=== PATIENT | female | born 1930 | race Caucasian/White ===

== ENCOUNTER → 2019-10-16 | Outpatient (CLI) | payer MEDICARE ==
[~2019-10-16] MED LIST: NORVASC10 MG PO; TIMOLOL 5 ML5 ML OP; TRIAMTERENE & H1 CA1 PO; VITAMINS & MINE1 TAB PO
[2019-10-16 10:02] LABS: CHLORIDE 101 mmol/L (98-107); POTASSIUM 3.7 mmol/L (3.5-5.1); SODIUM 135 mmol/L (136-145)
[2019-10-16 10:14] LABS: ALBUMIN 3.8 gm/dl (3.1-4.5); ALKALINE PHOSPHATASE 102 U/L (45-117); BUN 12 mg/dl (7-24); CREATININE 0.66 mg/dL (0.55-1.02); SGOT/AST 15 IU/L (3-35); SGPT/ALT 18 U/L (12-78); TOTAL PROTEIN 7.4 gm/dL (6.4-8.2)
== END | disposition home or self-care (01) ==
LOC: LAB 08:41
PROVIDERS: Family Medicine
DX: I10 Essential (primary) hypertension (principal)

== ENCOUNTER 2020-04-21 17:54 | Inpatient (IN) | payer MEDICARE ==
[~2020-04-21] VITALS: Ht 170.2 cm; Wt 79.0 kg
[2020-04-21 17:54] VITALS: BP 125/76
[2020-04-21 18:17] LABS: BASO % 0.2 % (0.0-1.0); EOS % 0.2 % (1.0-4.0); HEMATOCRIT 44.4 % (37.0-47.0); LYMPH # 3.2 10*3/uL (1.3-4.4); LYMPH % 36.3 % (27.0-41.0); MEAN CELL VOLUME 87.1 fl (81.0-99.0); MEAN CORPUSCULAR HGB 29.2 pg (27.0-31.0); MEAN CORPUSCULAR HGB CONC 33.6 g/dl (33.0-37.0); MEAN PLATELET VOLUME 8.3 fl (9.6-12.3); MONO # 0.9 10*3/uL (0.1-1.0); MONO % 10.1 % (3.0-9.0); NEUT # 4.7 10*3/uL (2.3-7.9); NEUT % 52.7 % (47.0-73.0); PLATELET COUNT AUTOMATED 286 10*3/uL (130-400); RED CELL DISTRI WIDTH 13.9 % (0-14.5); WHITE BLOOD COUNT 8.8 10*3/uL (4.8-10.8)
[2020-04-21 18:26] LABS: ACT PARTIAL THROMBO TIME 26.6 SECONDS (20.0-32.1)
[2020-04-21 18:33] LABS: ALBUMIN 3.2 gm/dl (3.1-4.5); BUN 13 mg/dl (7-24); CHLORIDE 94 mmol/L (98-107); CREATININE 0.74 mg/dL (0.55-1.02); POTASSIUM 2.9 mmol/L (3.5-5.1); SGOT/AST 14 IU/L (3-35); SGPT/ALT 19 U/L (12-78); SODIUM 126 mmol/L (136-145); TOTAL PROTEIN 6.4 gm/dL (6.4-8.2)
[2020-04-21 18:36] LABS: ALKALINE PHOSPHATASE 76 U/L (45-117)
[2020-04-21 18:39] LABS: TROPONIN I < 0.015 ng/ml (<0.045)
[2020-04-21 18:55] VITALS: BP 128/59
[2020-04-21 19:18] VITALS: BP 129/59
[2020-04-21 20:32] VITALS: BP 156/71
[2020-04-21] MEDS ORDERED: AMLODIPINE BESYL5 MG PO (22:57)
[2020-04-21] MEDS ORDERED: MIRTAZAPINE7.5 MG PO (22:58)
[2020-04-21] MEDS ORDERED: POTASSIUM CHLO10 ME4 PO (22:58)
[2020-04-21] MEDS ORDERED: TRIAMTERENE & H1 CAP PO (23:00)
[2020-04-22] VITALS: BP 144/71
[2020-04-22 00:14] LABS: BUN 18 mg/dl (7-24); CHLORIDE 98 mmol/L (98-107); POTASSIUM 3.5 mmol/L (3.5-5.1); SODIUM 129 mmol/L (136-145); TROPONIN I < 0.015 ng/ml (<0.045)
[2020-04-22] MEDS ORDERED: PRESERVISION A1 EAC1 PO (00:54)
[2020-04-22 05:30] LABS: ALBUMIN 2.8 gm/dl (3.1-4.5); ALKALINE PHOSPHATASE 72 U/L (45-117); BUN 14 mg/dl (7-24); CHLORIDE 102 mmol/L (98-107); CREATININE 0.52 mg/dL (0.55-1.02); POTASSIUM 3.1 mmol/L (3.5-5.1); SGOT/AST 8 IU/L (3-35); SGPT/ALT 16 U/L (12-78); SODIUM 135 mmol/L (136-145); TOTAL PROTEIN 5.6 gm/dL (6.4-8.2)
[2020-04-22 05:37] LABS: BASO % 0.1 % (0.0-1.0); EOS % 0.4 % (1.0-4.0); HEMATOCRIT 39.8 % (37.0-47.0); LYMPH # 2.7 10*3/uL (1.3-4.4); LYMPH % 36.8 % (27.0-41.0); MEAN CELL VOLUME 86.7 fl (81.0-99.0); MEAN CORPUSCULAR HGB 29.6 pg (27.0-31.0); MEAN CORPUSCULAR HGB CONC 34.2 g/dl (33.0-37.0); MEAN PLATELET VOLUME 8.6 fl (9.6-12.3); MONO # 0.8 10*3/uL (0.1-1.0); MONO % 10.5 % (3.0-9.0); NEUT # 3.8 10*3/uL (2.3-7.9); NEUT % 51.8 % (47.0-73.0); PLATELET COUNT AUTOMATED 253 10*3/uL (130-400); RED BLOOD COUNT 4.59 10*6/uL (4.10-5.10); RED CELL DISTRI WIDTH 14.1 % (0-14.5); THYROID STIM HORMONE (HS) 0.808 uIU/ml (0.358-4.75); WHITE BLOOD COUNT 7.3 10*3/uL (4.8-10.8)
[2020-04-22 08:00] VITALS: BP 156/70
[2020-04-22 12:00] VITALS: BP 157/73
[2020-04-22 16:00] VITALS: BP 131/57
[2020-04-22 20:00] VITALS: BP 132/63
[2020-04-23] VITALS: BP 151/64
[2020-04-23 07:05] LABS: BASO % 0.4 % (0.0-1.0); EOS # 0.1 10*3/uL (0.0-0.4); EOS % 0.7 % (1.0-4.0); HEMATOCRIT 40.8 % (37.0-47.0); LYMPH # 2.7 10*3/uL (1.3-4.4); LYMPH % 35.8 % (27.0-41.0); MEAN CELL VOLUME 87.9 fl (81.0-99.0); MEAN CORPUSCULAR HGB 29.7 pg (27.0-31.0); MEAN CORPUSCULAR HGB CONC 33.8 g/dl (33.0-37.0); MEAN PLATELET VOLUME 8.8 fl (9.6-12.3); MONO # 0.8 10*3/uL (0.1-1.0); MONO % 10.9 % (3.0-9.0); NEUT # 3.9 10*3/uL (2.3-7.9); NEUT % 51.9 % (47.0-73.0); PLATELET COUNT AUTOMATED 242 10*3/uL (130-400); RED BLOOD COUNT 4.64 10*6/uL (4.10-5.10); RED CELL DISTRI WIDTH 14.5 % (0-14.5); WHITE BLOOD COUNT 7.5 10*3/uL (4.8-10.8)
[2020-04-23 07:24] LABS: BUN 12 mg/dl (7-24); CHLORIDE 101 mmol/L (98-107); CREATININE 0.57 mg/dL (0.55-1.02); POTASSIUM 3.4 mmol/L (3.5-5.1); SODIUM 133 mmol/L (136-145)
[2020-04-23 08:00] VITALS: BP 130/78; BP 138/68
[2020-04-23 12:00] VITALS: BP 123/74
[2020-04-23 16:00] VITALS: BP 136/67
[2020-04-23 20:00] VITALS: BP 124/69
[2020-04-24] VITALS: BP 139/67
[2020-04-24 06:15] LABS: BUN 15 mg/dl (7-24); CHLORIDE 100 mmol/L (98-107); CREATININE 0.52 mg/dL (0.55-1.02); SODIUM 133 mmol/L (136-145)
[2020-04-24 08:00] VITALS: BP 151/82
[2020-04-24 12:00] VITALS: BP 125/66
== END 2020-04-24 13:51 | disposition other institution (70) | DRG 312 ==
LOC: ED 17:54 → EDHOLD 19:35 → 4E 19:35
PROVIDERS: Emergency Medicine; Internal Medicine; Registered Nurse; Student in an Organized Health Care Education/Training Program; ADMIT Family Medicine
DX: R55 Syncope and collapse (principal); E87.1 Hypo-osmolality and hyponatremia; E87.6 Hypokalemia; R73.9 Hyperglycemia, unspecified; E83.41 Hypermagnesemia; I10 Essential (primary) hypertension; Z03.818 Encounter for observation for suspected exposure to other biological agents ruled out; Z96.651 Presence of right artificial knee joint; Z96.641 Presence of right artificial hip joint; Z98.49 Cataract extraction status, unspecified eye; Z79.899 Other long term (current) drug therapy; Z85.3 Personal history of malignant neoplasm of breast

== ENCOUNTER 2020-05-21 10:03 | Inpatient (IN) | payer MEDICARE ==
[~2020-05-21] VITALS: Ht 170.2 cm; Wt 83.1 kg
[~2020-05-21 10:03] MED LIST changes: +AMLODIPINE BESYL5 MG PO; +MIRTAZAPINE7.5 MG PO; +POTASSIUM CHLO10 ME4 PO; +PRESERVISION A1 EAC1 PO; +TRIAMTERENE & H1 CAP PO
[2020-05-21 10:13] VITALS: BP 153/77
[2020-05-21 11:00] LABS: BASO % 0.3 % (0.0-1.0); EOS % 0.2 % (1.0-4.0); HEMATOCRIT 42.3 % (37.0-47.0); LYMPH % 32.1 % (27.0-41.0); MEAN CELL VOLUME 85.1 fl (81.0-99.0); MEAN CORPUSCULAR HGB 29.6 pg (27.0-31.0); MEAN CORPUSCULAR HGB CONC 34.8 g/dl (33.0-37.0); MEAN PLATELET VOLUME 8.2 fl (9.6-12.3); MONO # 0.7 10*3/uL (0.1-1.0); MONO % 11.3 % (3.0-9.0); NEUT # 3.4 10*3/uL (2.3-7.9); NEUT % 55.9 % (47.0-73.0); PLATELET COUNT AUTOMATED 297 10*3/uL (130-400); RED BLOOD COUNT 4.97 10*6/uL (4.10-5.10); RED CELL DISTRI WIDTH 14.1 % (0-14.5); WHITE BLOOD COUNT 6.1 10*3/uL (4.8-10.8)
[2020-05-21 11:03] LABS: BILIRUBIN NEGATIVE (NEGATIVE); BLOOD NEGATIVE (NEGATIVE); CLARITY CLEAR (CLEAR); COLOR YELLOW (YELLOW); GLUCOSE NEGATIVE (NEGATIVE); KETONE NEGATIVE (NEGATIVE); LEUKO ESTERASE NEGATIVE (NEGATIVE); NITRITE NEGATIVE (NEGATIVE); PH 8.5 (5.0-9.0); SPECIFIC GRAVITY 1.005 (1.005-1.030); UROBILINOGEN 0.2 E.U./dl (0.2-1.0)
[2020-05-21 11:07] LABS: BACTERIA TRACE; EPITHELIAL CELLS 0-2; WBC 0-2 wbc/hpf (0-5)
[2020-05-21 11:18] LABS: ALBUMIN 3.2 gm/dl (3.1-4.5); ALKALINE PHOSPHATASE 94 U/L (45-117); BUN 8 mg/dl (7-24); CHLORIDE 90 mmol/L (98-107); CREATININE 0.61 mg/dL (0.55-1.02); POTASSIUM 3.4 mmol/L (3.5-5.1); SGOT/AST 14 IU/L (3-35); SGPT/ALT 17 U/L (12-78); SODIUM 125 mmol/L (136-145); TOTAL PROTEIN 6.8 gm/dL (6.4-8.2)
[2020-05-21 11:50] VITALS: BP 156/80
[2020-05-21 14:23] VITALS: BP 160/82
[2020-05-21 17:05] LABS: BUN 7 mg/dl (7-24); CHLORIDE 93 mmol/L (98-107); CREATININE 0.61 mg/dL (0.55-1.02); POTASSIUM 3.7 mmol/L (3.5-5.1); SODIUM 128 mmol/L (136-145)
[2020-05-21 17:45] VITALS: BP 130/72
[2020-05-21] MEDS ORDERED: POTASSIUM CHLO20 ME3 PO (17:59)
[2020-05-21 20:00] VITALS: BP 125/74
[2020-05-22] VITALS: BP 140/84
[2020-05-22 06:08] LABS: BASO % 0.3 % (0.0-1.0); EOS % 0.5 % (1.0-4.0); LYMPH # 2.8 10*3/uL (1.3-4.4); LYMPH % 42.7 % (27.0-41.0); MEAN CELL VOLUME 85.1 fl (81.0-99.0); MEAN CORPUSCULAR HGB 28.6 pg (27.0-31.0); MEAN CORPUSCULAR HGB CONC 33.6 g/dl (33.0-37.0); MEAN PLATELET VOLUME 8.2 fl (9.6-12.3); MONO # 0.8 10*3/uL (0.1-1.0); MONO % 11.9 % (3.0-9.0); NEUT # 2.9 10*3/uL (2.3-7.9); NEUT % 44.3 % (47.0-73.0); PLATELET COUNT AUTOMATED 324 10*3/uL (130-400); RED BLOOD COUNT 5.17 10*6/uL (4.10-5.10); RED CELL DISTRI WIDTH 14.2 % (0-14.5); WHITE BLOOD COUNT 6.5 10*3/uL (4.8-10.8)
[2020-05-22 06:40] LABS: BUN 9 mg/dl (7-24); CHLORIDE 95 mmol/L (98-107); CHOLESTEROL 186 mg/dL (<200); CREATININE 0.63 mg/dL (0.55-1.02); HDL CHOLESTEROL 92 mg/dl (40-60); LDL CHOLESTEROL 83 mg/dL (9-159); POTASSIUM 3.3 mmol/L (3.5-5.1); SODIUM 129 mmol/L (136-145); TRIGLYCERIDES 56 mg/dl (<150); VLDL CHOLESTEROL 11 mg/dL (6-40)
[2020-05-22 06:48] LABS: FREE T4 1.29 ng/dl (0.76-1.46)
[2020-05-22 08:00] VITALS: BP 131/77
[2020-05-22] MEDS ORDERED: LISINOPRIL10 M1 PO (11:53)
== END 2020-05-22 13:00 | disposition home or self-care (01) | DRG 641 ==
LOC: ED 10:03 → EDHOLD 12:22 → 5E 17:02
PROVIDERS: Emergency Medicine; Internal Medicine; ADMIT Emergency Medicine
DX: E87.1 Hypo-osmolality and hyponatremia (principal); E87.6 Hypokalemia; R73.9 Hyperglycemia, unspecified; E66.3 Overweight; H35.30 Unspecified macular degeneration; H40.9 Unspecified glaucoma; I10 Essential (primary) hypertension; Z82.49 Family history of ischemic heart disease and other diseases of the circulatory system; Z80.9 Family history of malignant neoplasm, unspecified; Z82.0 Family history of epilepsy and other diseases of the nervous system; Z68.29 Body mass index [BMI] 29.0-29.9, adult